=== PATIENT | female | born 1990 | race Caucasian/White ===

== ENCOUNTER 2016-07-03 21:10 | Emergency (ER) | payer SELFPAY ==
[~2016-07-03] VITALS: Ht 170.2 cm; Wt 64.2 kg
[~2016-07-03 21:10] MED LIST: BL IBUPROFEN200 MG PO; DEPO-PROVER150 MG/ML IM; DOCUSATE CAL240 MG PO; LORTAB 5 OR; MACRODANTIN100 MG PO; NAPROSYN500 MG OR; NO MEDS; PRENATAL1 TA1 PO; PRENATAL1 TAB OR; PROAIR HFA IN; ULTRAM50 M1 OR; ZOFRAN4 M1 OR; ZPAK PO
[2016-07-03] MEDS ORDERED: IBUPROFEN600 MG PO (23:46)
[2016-07-04 00:17] VITALS: BP 119/88
== END 2016-07-04 00:17 | disposition home or self-care (01) | DRG 558 ==
LOC: ED 21:10
DX: M75.22 Bicipital tendinitis, left shoulder (principal); S43.401A Unspecified sprain of right shoulder joint, initial encounter; X50.0XXA Overexertion from strenuous movement or load, initial encounter; Y93.E9 Activity, other interior property and clothing maintenance; Y92.009 Unspecified place in unspecified non-institutional (private) residence as the place of occurrence of the external cause

== ENCOUNTER 2016-11-23 21:18 | Emergency (ER) | payer SELFPAY ==
[~2016-11-23] VITALS: Ht 170.2 cm; Wt 64.8 kg
[~2016-11-23 21:18] MED LIST changes: +IBUPROFEN600 MG PO
[2016-11-23] MEDS ORDERED: BENADRY2 EX (21:53)
[2016-11-23] MEDS ORDERED: AMOXICILLIN500 MG PO (21:53)
[2016-11-23 21:59] VITALS: BP 132/92
== END 2016-11-23 22:00 | disposition home or self-care (01) | DRG 607 ==
LOC: ED 21:18
DX: S30.861A Insect bite (nonvenomous) of abdominal wall, initial encounter (principal); F41.0 Panic disorder [episodic paroxysmal anxiety]; F17.210 Nicotine dependence, cigarettes, uncomplicated; W57.XXXA Bitten or stung by nonvenomous insect and other nonvenomous arthropods, initial encounter

== ENCOUNTER 2017-08-29 13:05 | Emergency (ER) | payer SELFPAY ==
[~2017-08-29] VITALS: Ht 170.2 cm; Wt 63.0 kg
[~2017-08-29 13:05] MED LIST changes: +AMOXICILLIN500 MG PO; +BENADRY2 EX
[2017-08-29 15:23] LABS: URINE BILIRUBIN - DIPSTICK SMALL (NEGATIVE); URINE BLOOD DIPSTICK NEGATIVE (NEGATIVE); URINE COLOR YELLOW; URINE GLUCOSE - DIPSTICK NEGATIVE (NEGATIVE); URINE KETONE TRACE mg/dL (NEGATIVE); URINE LEUK ESTERASE SMALL (NEGATIVE); URINE NITRITE - DIPSTICK POSITIVE (Negative); URINE PH 5.5 (4.5-8.0); URINE PROTEIN - DIPSTICK TRACE mg/dL (NEG-TRACE); URINE SPECIFIC GRAVITY 1.025
[2017-08-29 15:24] LABS: URINE CLARITY CLOUDY
[2017-08-29 15:35] LABS: URINE BACTERIA MANY hpf; URINE SQUAMOUS EPITHELIAL CELL FEW EPI/hpf (0-FEW)
[2017-08-29] MEDS ORDERED: FLEXERIL PO (15:37)
[2017-08-29] MEDS ORDERED: CIPROFLOXACN500 MG PO (15:37)
[2017-08-29 15:39] VITALS: BP 118/87
== END 2017-08-29 15:45 | disposition home or self-care (01) | DRG 690 ==
LOC: ED 13:05
DX: N39.0 Urinary tract infection, site not specified (principal); S39.012A Strain of muscle, fascia and tendon of lower back, initial encounter; X50.9XXA Other and unspecified overexertion or strenuous movements or postures, initial encounter; B96.20 Unspecified Escherichia coli [E. coli] as the cause of diseases classified elsewhere

== ENCOUNTER 2017-10-18 20:02 | Emergency (ER) | payer SELFPAY ==
[~2017-10-18] VITALS: Ht 170.2 cm; Wt 64.4 kg
[~2017-10-18 20:02] MED LIST changes: +CIPROFLOXACN500 MG PO; +FLEXERIL PO
[2017-10-18 20:29] LABS: URINE BILIRUBIN - DIPSTICK NEGATIVE (NEGATIVE); URINE BLOOD DIPSTICK NEGATIVE (NEGATIVE); URINE COLOR YELLOW; URINE GLUCOSE - DIPSTICK NEGATIVE (NEGATIVE); URINE KETONE NEGATIVE (NEGATIVE); URINE PROTEIN - DIPSTICK NEGATIVE (NEG-TRACE); URINE SPECIFIC GRAVITY 1.025
[2017-10-18 20:30] LABS: URINE CLARITY SL CLOUDY; URINE LEUK ESTERASE MODERATE (NEGATIVE); URINE NITRITE - DIPSTICK POSITIVE (Negative)
[2017-10-18 20:40] LABS: URINE BACTERIA MANY hpf; URINE SQUAMOUS EPITHELIAL CELL MODERATE EPI/hpf (0-FEW)
[2017-10-18] MEDS ORDERED: CIPROFLOXACN500 MG PO (20:51)
[2017-10-18 21:08] VITALS: BP 128/91
== END 2017-10-18 21:08 | disposition home or self-care (01) | DRG 690 ==
LOC: ED 20:02
DX: N39.0 Urinary tract infection, site not specified (principal); F41.9 Anxiety disorder, unspecified; F17.210 Nicotine dependence, cigarettes, uncomplicated

== ENCOUNTER 2019-02-16 21:17 | Emergency (ER) | payer SELFPAY ==
[~2019-02-16] VITALS: Ht 170.2 cm; Wt 66.0 kg
[2019-02-16 23:55] VITALS: BP 120/81
== END 2019-02-16 23:57 | disposition home or self-care (01) | DRG 153 ==
LOC: ED 21:17
DX: J06.9 Acute upper respiratory infection, unspecified (principal)

== ENCOUNTER 2019-05-07 | Emergency (ER) | payer SELFPAY ==
[2019-05-07] MEDS ORDERED: AUGMENTIN500TAB PO (21:34)
[2019-05-07] MEDS ORDERED: HYDROCO/APAP1 TA9 PO (21:34)
== END 2019-05-07 21:45 | disposition home or self-care (01) | DRG 156 ==
PROC: 3E1B78Z Irrigation of Ear using Irrigating Substance, Via Natural or Artificial Opening (ICD-10-PCS; principal; 2019-05-07)
DX: H61.22 Impacted cerumen, left ear (principal); H66.92 Otitis media, unspecified, left ear; H60.92 Unspecified otitis externa, left ear; F17.210 Nicotine dependence, cigarettes, uncomplicated

== ENCOUNTER 2019-11-02 17:51 | Emergency (ER) | payer SELFPAY ==
[~2019-11-02] VITALS: Ht 170.2 cm; Wt 60.0 kg
[~2019-11-02 17:51] MED LIST changes: +AUGMENTIN500TAB PO; +HYDROCO/APAP1 TA9 PO
[2019-11-02 19:05] VITALS: BP 119/80
== END 2019-11-02 19:05 | disposition home or self-care (01) | DRG 556 ==
LOC: ED 17:51
DX: M25.531 Pain in right wrist (principal); F17.200 Nicotine dependence, unspecified, uncomplicated

== ENCOUNTER 2020-01-19 20:48 | Emergency (ER) | payer SELFPAY ==
[~2020-01-19] VITALS: Ht 170.2 cm; Wt 62.0 kg
[2020-01-19] MEDS ORDERED: MOTRIN400 MG/TAB PO (23:20)
[2020-01-19 23:47] VITALS: BP 128/78
== END 2020-01-19 23:47 | disposition home or self-care (01) | DRG 605 ==
LOC: ED 20:48
DX: S90.31XA Contusion of right foot, initial encounter (principal); F41.9 Anxiety disorder, unspecified; F17.200 Nicotine dependence, unspecified, uncomplicated; W55.19XA Other contact with horse, initial encounter; Y93.K9 Activity, other involving animal care; Y92.71 Barn as the place of occurrence of the external cause

== ENCOUNTER 2020-09-21 15:26 | Emergency (ER) | payer SELFPAY ==
[~2020-09-21] VITALS: Ht 170.2 cm; Wt 65.9 kg
[~2020-09-21 15:26] MED LIST changes: +MOTRIN400 MG/TAB PO
[2020-09-21 17:23] LABS: HEMATOCRIT 41.4 % (37.0-47.0); HEMOGLOBIN 13.1 g/dl (12.0-16.0); IMMATURE GRANULOCYTES 0.1 % (0.0-5.0); MEAN CELL VOLUME 84.7 fL CALC (80.0-100.0); MEAN CORPUSCULAR HGB 26.8 pG CALC (26.0-32.0); MEAN CORPUSCULAR HGB CONC 31.6 g/dL CAL (32.0-36.0); NEUT# 15.79 thou/uL (2.00-7.15); RED BLOOD COUNT 4.89 mill/uL (4.20-5.60); RED CELL DISTRI WIDTH 14.7 % (11.5-15.5)
[2020-09-21 17:41] LABS: BUN 6 mg/dL (7-17); CREATININE 0.7 mg/dL (0.5-1.0)
[2020-09-21 17:42] LABS: ALBUMIN 4.2 g/dL (3.2-5.0); ALKALINE PHOSPHATASE 57 u/l (38-126); ANION GAP 14 (6-22 (CALC)); BILIRUBIN, TOTAL 0.7 mg/dL (0.0-1.4); BUN/CREATININE RATIO 9 (12-20 (CALC)); CARBON DIOXIDE 22 mmol/l (22-30); CHLORIDE 104 mmol/l (95-108); GFR > 60 ML/MIN (>=60 (CALC)); GFR FOR AFR.AMER. > 60 ML/MIN (>=60 (CALC)); POTASSIUM 3.8 mmol/l (3.5-5.1); SGOT/AST 24 u/l (14-36); SODIUM 137 mmol/l (137-146); TOTAL PROTEIN 7.8 g/dL (6.3-8.2)
[2020-09-21 18:09] LABS: URINE BILIRUBIN - DIPSTICK NEGATIVE (NEGATIVE); URINE COLOR YELLOW; URINE GLUCOSE - DIPSTICK NEGATIVE (NEGATIVE); URINE KETONE Negative (NEGATIVE)
[2020-09-21 18:10] LABS: URINE BLOOD DIPSTICK NEGATIVE (NEGATIVE); URINE LEUK ESTERASE NEGATIVE (NEGATIVE); URINE NITRITE - DIPSTICK NEGATIVE (Negative); URINE PH 7.5 (4.5-8.0); URINE PROTEIN - DIPSTICK Negative (NEG-TRACE); URINE SPECIFIC GRAVITY 1.015; URINE UROBILINOGEN - DIPSTICK 0.2 E.U./dL (0.2)
[2020-09-21] MEDS ORDERED: ZOFRAN4 MG/TAB PO (18:28)
[2020-09-21 18:35] VITALS: BP 98/75
== END 2020-09-21 18:43 | disposition home or self-care (01) | DRG 923 ==
LOC: ED 15:26
DX: T67.5XXA Heat exhaustion, unspecified, initial encounter (principal); D72.829 Elevated white blood cell count, unspecified; F17.210 Nicotine dependence, cigarettes, uncomplicated; F41.9 Anxiety disorder, unspecified; X30.XXXA Exposure to excessive natural heat, initial encounter

== ENCOUNTER 2021-10-19 19:40 | Emergency (ER) | payer SELFPAY ==
[~2021-10-19] VITALS: Ht 170.2 cm; Wt 63.6 kg
[~2021-10-19 19:40] MED LIST changes: +ZOFRAN4 MG/TAB PO
[2021-10-19 19:48] VITALS: BP 110/85
[2021-10-19] MEDS ORDERED: NAPROXEN500 MG PO (20:30)
[2021-10-19] MEDS ORDERED: METHOCARBAMOL500 MG PO (20:30)
[2021-10-19 20:35] VITALS: BP 110/855
== END 2021-10-19 20:41 | disposition home or self-care (01) | DRG 556 ==
LOC: ED 19:40
PROC: 2W39XYZ Immobilization of Left Upper Extremity using Other Device (ICD-10-PCS; principal; 2021-10-19)
DX: M25.512 Pain in left shoulder (principal); F41.9 Anxiety disorder, unspecified; F17.200 Nicotine dependence, unspecified, uncomplicated; W50.0XXA Accidental hit or strike by another person, initial encounter; Y93.89 Activity, other specified; Y99.0 Civilian activity done for income or pay

== ENCOUNTER 2021-12-31 16:08 | Emergency (ER) | payer SELFPAY ==
[~2021-12-31] VITALS: Ht 170.2 cm; Wt 61.2 kg
[~2021-12-31 16:08] MED LIST changes: +METHOCARBAMOL500 MG PO; +NAPROXEN500 MG PO
[2021-12-31 16:16] VITALS: BP 135/81
[2021-12-31 16:31] VITALS: BP 121/84
[2021-12-31 17:00] VITALS: BP 119/90
[2021-12-31] MEDS ORDERED: NAPROXEN500 MG PO (17:50)
[2021-12-31 18:03] VITALS: BP 119/90
== END 2021-12-31 18:18 | disposition home or self-care (01) | DRG 563 ==
LOC: ED 16:08
DX: S93.492A Sprain of other ligament of left ankle, initial encounter (principal); X50.1XXA Overexertion from prolonged static or awkward postures, initial encounter

== ENCOUNTER 2022-11-13 20:29 | Emergency (ER) | payer SELFPAY ==
[~2022-11-13] VITALS: Ht 170.2 cm; Wt 71.0 kg
[2022-11-13 22:40] LABS: BASO% 0.6 % (0-3); EOS% 1.2 % (0-8); HEMATOCRIT 35.6 % (37.0-47.0); IMMATURE GRANULOCYTES 0.2 % (0.0-5.0); LYMPH% 14.2 % (15-41); MEAN CELL VOLUME 84.4 fL CALC (80.0-100.0); MEAN CORPUSCULAR HGB 26.3 pG CALC (26.0-32.0); MEAN CORPUSCULAR HGB CONC 31.2 g/dL CAL (32.0-36.0); MONO% 5.8 % (2-13); NEUT# 6.99 thou/uL (2.00-7.15); RED BLOOD COUNT 4.22 mill/uL (4.20-5.60); RED CELL DISTRI WIDTH 16.2 % (11.5-15.5)
[2022-11-13 22:43] LABS: HEMOGLOBIN 11.1 g/dl (12.0-16.0)
[2022-11-13 22:59] LABS: HCG SERUM/URINE (NEG/POS) NEGATIVE (NEGATIVE)
[2022-11-13 23:01] LABS: ANION GAP 9 (6-22 (CALC)); BUN 8 mg/dL (7-17); BUN/CREATININE RATIO 11 (12-20 (CALC)); CARBON DIOXIDE 24 mmol/l (22-30); CHLORIDE 111 mmol/l (95-108); CREATININE 0.8 mg/dL (0.5-1.0); GFR FOR AFR.AMER. > 60 ML/MIN (>=60 (CALC)); GFR OTHER RACES > 60 ML/MIN (>=60 (CALC)); POTASSIUM 3.5 mmol/l (3.5-5.1); SODIUM 140 mmol/l (137-146)
[2022-11-14 00:12] VITALS: BP 118/50
== END 2022-11-14 00:21 | disposition home or self-care (01) | DRG 153 ==
LOC: ED 20:29
PROVIDERS: Family Medicine
DX: J06.9 Acute upper respiratory infection, unspecified (principal); F41.9 Anxiety disorder, unspecified; F17.200 Nicotine dependence, unspecified, uncomplicated; Z20.822 Contact with and (suspected) exposure to COVID-19

== ENCOUNTER 2023-11-06 15:45 | Emergency (ER) | payer SELFPAY ==
[2023-11-06] VITALS (11 sets, daily range): BP systolic 107–127; BP diastolic 75–94
[~2023-11-06] VITALS: Ht 170.2 cm; Wt 64.0 kg
[~2023-11-06 15:45] MED LIST changes: +CEPHALEXIN500 M1 PO
[2023-11-06] MEDS ORDERED: KETOROLAC TROMETHAMINE 30 MG/ML SDV IM ONE (16:05)
[2023-11-06] MEDS ORDERED: MOTRIN800 MG PO (18:02)
== END 2023-11-06 18:14 | disposition home or self-care (01) | DRG 558 ==
LOC: ED 15:45
DX: M65.4 Radial styloid tenosynovitis [de Quervain] (principal); F41.9 Anxiety disorder, unspecified; F17.200 Nicotine dependence, unspecified, uncomplicated

== ENCOUNTER 2024-03-06 14:01 | Emergency (ER) | payer SELFPAY ==
[~2024-03-06] VITALS: Ht 170.2 cm; Wt 64.8 kg
[~2024-03-06 14:01] MED LIST changes: +MOTRIN800 MG PO
[2024-03-06 14:41] LABS: URINE BILIRUBIN - DIPSTICK Negative (NEGATIVE); URINE BLOOD DIPSTICK Negative (NEGATIVE); URINE COLOR Yellow; URINE GLUCOSE - DIPSTICK Negative (NEGATIVE); URINE KETONE Negative (NEGATIVE); URINE LEUK ESTERASE Small (NEGATIVE); URINE NITRITE - DIPSTICK Positive (Negative); URINE PROTEIN - DIPSTICK Negative (NEG-TRACE); URINE SPECIFIC GRAVITY 1.015; URINE UROBILINOGEN - DIPSTICK 0.2 E.U./dL (0.2)
[2024-03-06 14:47] LABS: URINE BACTERIA MANY hpf; URINE RBC 0-2 RBC/hpf (0-5); URINE SQUAMOUS EPITHELIAL CELL FEW EPI/hpf (0-FEW)
[2024-03-06 15:45] VITALS: BP 133/87
[2024-03-06 16:00] VITALS: BP 133/83
[2024-03-06] MEDS ORDERED: MACRODANTIN100 MG PO (16:44)
[2024-03-06] MEDS ORDERED: LEVOCETIRIZINE D5 MG PO (16:44)
[2024-03-06] MEDS ORDERED: BENZONATATE200 MG PO (16:44)
[2024-03-06] MEDS ORDERED: AZELASTINE HYDR1 SPR (16:44)
[2024-03-06 17:09] VITALS: BP 133/83
[2024-03-08] MEDS ORDERED: BACTRIM DS1 TAB PO (12:25)
== END 2024-03-06 17:10 | disposition home or self-care (01) | DRG 153 ==
LOC: ED 14:01
PROVIDERS: Family Medicine
DX: J32.9 Chronic sinusitis, unspecified (principal); F17.210 Nicotine dependence, cigarettes, uncomplicated; Z20.822 Contact with and (suspected) exposure to COVID-19; R82.71 Bacteriuria

== ENCOUNTER 2024-05-23 19:18 | Emergency (ER) | payer OTHER ==
[~2024-05-23] VITALS: Ht 170.2 cm; Wt 60.0 kg
[~2024-05-23 19:18] MED LIST changes: +AZELASTINE HYDR1 SPR; +BACTRIM DS1 TAB PO; +BENZONATATE200 MG PO; +LEVOCETIRIZINE D5 MG PO
[2024-05-23] MEDS ORDERED: MELOXICAM PO ONE (20:00)
[2024-05-23] MEDS ORDERED: ACETAMINOPHEN 500 MG TAB PO ONE (20:00)
[2024-05-23 21:28] VITALS: BP 121/89
== END 2024-05-23 21:28 | disposition home or self-care (01) | DRG 552 ==
LOC: ED 19:18
DX: M54.9 Dorsalgia, unspecified (principal); M25.562 Pain in left knee; M25.561 Pain in right knee; M25.559 Pain in unspecified hip; V49.50XA Passenger injured in collision with unspecified motor vehicles in traffic accident, initial encounter